=== PATIENT | female | born 1970 | race African-American/Black ===

== ENCOUNTER 2022-09-29 08:15 | Emergency (ER) | payer OTHER ==
[2022-09-29 08:18] VITALS: RESP 18; TEMP 98; BMI 32.9
[2022-09-29] MEDS ORDERED: ASPIRIN 81 MG CHEWABLE TABLETS PO ONE (08:53)
[2022-09-29] MEDS ORDERED: ASPIRIN 81 MG CHEWABLE TABLETS ONE (09:23)
[2022-09-29 09:52] LABS: BASO % 1.2 % (0-2.0); EOS % 1.5 % (0-4.5); HEMATOCRIT 40.7 % (32.4-45.2); HEMOGLOBIN 13.7 GM/dL (10.7-15.3); INR 1.04 (0.83-1.09); LYMPH % 34.9 % (8-40); MCH 29.1 pg (25.7-33.7); MCHC 33.7 g/dl (32.0-36.0); MEAN CELL VOLUME 86.3 fl (80-96); MEAN PLT VOLUME 9.4 fl (7.5-11.1); MONO % 7.5 % (3.8-10.2); NEUT % 54.9 % (42.8-82.8); PLATELET COUNT 240 10^3/uL (134-434); PROTHROMBIN TIME (PATIENT) 12.1 SEC (9.7-13.0); RBC 4.72 M/mm3 (3.60-5.2); RDW 14.1 % (11.6-15.6); WHITE BLOOD COUNT 4.2 K/mm3 (4.0-10.0)
[2022-09-29 09:54] LABS: ACTIVATED PTT 22.6 SECONDS (25.2-36.5)
[2022-09-29 10:08] LABS: ALBUMIN 3.8 g/dl (3.4-5.0); BLOOD UREA NITROGEN 9.2 mg/dL (7-18); CALCIUM 8.9 mg/dL (8.5-10.1); MAGNESIUM 2.2 mg/dL (1.8-2.4)
[2022-09-29 10:11] LABS: CREATININE 0.8 mg/dL (0.55-1.3)
[2022-09-29 10:13] LABS: BILIRUBIN,TOTAL 0.5 mg/dL (0.2-1); TOT PROT 7.9 g/dl (6.4-8.2)
[2022-09-29] MEDS ORDERED: KETOROLAC TROMETHAMINE 15 MG/ML VIAL IVPUSH ONE (10:22)
[2022-09-29] MEDS ORDERED: KETOROLAC TROMETHAMINE 15 MG/ML VIAL ONE (11:05)
[2022-09-29 12:46] VITALS: BP 122/68; PULSE 80
== END 2022-09-29 12:49 | disposition home or self-care (01) ==
LOC: JER 08:15
PROC: 3E0333Z Introduction of Anti-inflammatory into Peripheral Vein, Percutaneous Approach (ICD-10-PCS; principal; 2022-09-29)
DX: R07.89 Other chest pain (principal)
CPT/HCPCS: 36415; 71046-TC-FY; 80053; 83735; 84484; 85025; 85610; 85730; 93005; 93010; 99285-25

== ENCOUNTER 2023-02-18 04:48 | Day surgery (SDC) | payer OTHER ==
[2023-02-14 16:28] VITALS: BMI 33.8
[2023-02-18 09:40] VITALS: TEMP 97.7
[2023-02-18 10:11] VITALS: BP 129/59; PULSE 60; RESP 16
== END 2023-02-18 10:25 | disposition home or self-care (01) ==
LOC: JASU-ENDO 04:48
PROVIDERS: ATTEND Internal Medicine Gastroenterology
PROC: 0DBL8ZX Excision of Transverse Colon, Via Natural or Artificial Opening Endoscopic, Diagnostic (ICD-10-PCS; principal; 2023-02-18 09:00)
DX: Z12.11 Encounter for screening for malignant neoplasm of colon (principal); D12.3 Benign neoplasm of transverse colon; K64.8 Other hemorrhoids; K57.30 Diverticulosis of large intestine without perforation or abscess without bleeding
CPT/HCPCS: 81025; 88305-TC